=== PATIENT | male | born 1970 | race Caucasian/White ===

== ENCOUNTER 2020-03-14 14:38 | Outpatient (REF) | payer OTHER, SELFPAY | END 2020-03-14 14:39 | disposition home or self-care (01) | LOC: HO.LAB 14:38 | PROVIDERS: PCP Internal Medicine; Visit Provider Internal Medicine | DX: Z20.828 Contact with and (suspected) exposure to other viral communicable diseases (principal) | CPT/HCPCS: 87635 ==

== ENCOUNTER 2022-03-19 13:49 | Outpatient (REF) | payer OTHER, SELFPAY ==
[2022-03-19 18:26] LABS: MANUAL DIFF FLAG NO
[2022-03-19 18:29] LABS: Basophils Percent Auto 0.9 % (0-2); Eosinophils Percent Auto 0.7 % (0-4); Hematocrit 40.5 % (42.0-52.0); Hemoglobin 14.4 g/dl (14.0-18.0); Imm Gran Abs Auto 0.03 X10*3/uL (0.00-0.03); Imm Gran Pct Auto 0.7 % (0.0-0.4); Lymphocytes Absolute Auto 1.4 X10*3/uL (1.2-4.9); Lymphocytes Percent Auto 32.4 % (20-40); Mean Corpuscular HGB Conc 35.6 g/dl (31.0-36.0); Mean Corpuscular Hemoglobin 31.3 pg (27.0-33.0); Mean Platelet Volume 10.8 fL (9.4-12.4); Monocytes Absolute Auto 0.5 X10*3/uL (0.1-1.2); Monocytes Percent Auto 10.9 % (2-11); Neutrophils Absolute Auto 2.4 x10*3/uL (2.0-8.3); Neutrophils Percent Auto 54.4 % (45-73); Platelet Count 227 X10*3/uL (160-400); Red Cell Distribution Width 13.5 % (11.0-16.0); White Blood Count 4.4 X10*3/uL (4.8-10.8)
[2022-03-19 18:50] LABS: Alanine Aminotransferase 23 U/L (0-40); Albumin Level 4.4 g/dL (3.5-5.0); Alkaline Phosphatase 65 U/L (39-117); Anion Gap 14 (12-20); Aspartate Amino Transferase 21 U/L (5-37); Bilirubin Total 0.7 mg/dL (0.0-1.0); Blood Urea Nitrogen 20 mg/dL (9-16); Calcium 9.6 mg/dL (8.4-10.2); Carbon Dioxide 26 mmol/L (22-29); Chloride 104 mmol/L (96-108); Cholesterol 227 mg/dL; Estimated Glomerular Filt Rate 59; Glucose Random 88 mg/dL (60-115); HDL Cholesterol 42 mg/dL; LDL Cholesterol Calculated 162 mg/dl; Potassium 4.7 mmol/L (3.3-5.1); Sodium 139 mmol/L (135-145); Total Protein 7.2 g/dL (6.5-8.0); Triglycerides 118 mg/dL
[2022-03-19 19:12] LABS: Prostate Specific Antigen 0.81 ng/mL (<0.05-4.0); Vitamin D 25-OH Total 31.8 ng/mL (>30)
[2022-03-20 05:12] LABS: Estimated Average Glucose 108 mg/dL; Hemoglobin A1c % 5.4 %
== END 2022-03-19 13:50 | disposition home or self-care (01) ==
LOC: HO.MANLDS 13:49
PROVIDERS: Visit Provider Internal Medicine
DX: Z00.00 Encounter for general adult medical examination without abnormal findings (principal); Z12.5 Encounter for screening for malignant neoplasm of prostate
CPT/HCPCS: 36415; 80053; 80061; 82306; 83036; 84153; 85025

== ENCOUNTER 2022-03-21 14:15 | Outpatient (REF) | payer OTHER, SELFPAY ==
[2022-03-27 11:36] LABS: Testosterone, Total 193 ng/dL (250-1100)
== END 2022-03-21 14:16 | disposition home or self-care (01) ==
LOC: HO.MANLDS 14:15
PROVIDERS: Visit Provider Internal Medicine
DX: R53.83 Other fatigue (principal)
CPT/HCPCS: 36415; 84403

== ENCOUNTER 2022-04-17 14:09 | Outpatient (REF) | payer OTHER, SELFPAY ==
[2022-04-23 13:06] LABS: Testosterone, Total 182 ng/dL (250-1100)
== END 2022-04-17 14:10 | disposition home or self-care (01) ==
LOC: HO.MANLDS 14:09
PROVIDERS: Visit Provider Internal Medicine
DX: R79.89 Other specified abnormal findings of blood chemistry (principal)
CPT/HCPCS: 36415; 84403

== ENCOUNTER 2022-06-05 16:16 | Outpatient (REF) | payer OTHER, SELFPAY ==
[2022-06-11 10:43] LABS: Testosterone, Total 341 ng/dL (250-1100)
== END 2022-06-05 16:17 | disposition home or self-care (01) ==
LOC: HO.MANLDS 16:16
PROVIDERS: Visit Provider Internal Medicine
DX: R79.89 Other specified abnormal findings of blood chemistry (principal)
CPT/HCPCS: 36415; 84403